=== PATIENT | male | born 1945 | race Caucasian/White ===

== ENCOUNTER 2021-11-11 09:58 | Emergency (ER) | payer MEDICARE, OTHER ==
[~2021-11-11] VITALS: Ht 182.9 cm; Wt 95.5 kg
[2021-11-11] MEDS ORDERED: ACETAMINOPHEN 500 MG TABLET PO ONE (10:30)
[2021-11-11 10:48] LABS: COVID AG,FIA SOURCE NASOPHARYNGEAL
[2021-11-11 10:50] LABS: BASOPHILS % (AUTO) 0.3 % (0.0-2.0); EOSINOPHILS % (AUTO) 0.2 % (1.0-6.0); HEMATOCRIT 41.5 % (41-53); HEMOGLOBIN 13.9 g/dL (13.5-17.5); LYMPHOCYTES # (AUTO) 1.5 K/uL (1.0-4.8); LYMPHOCYTES % (AUTO) 13.7 % (22.0-44.0); MEAN CORPUSCULAR HGB CONC 33.5 G/dL (31.0-37.0); MEAN CORPUSCULAR VOLUME 87 fL (80-100); MONOCYTES # (AUTO) 1.1 K/uL (0.1-1.0); MONOCYTES % (AUTO) 9.6 % (2.0-9.0); NEUTROPHILS # (AUTO) 8.5 K/uL (1.8-7.7); NEUTROPHILS % (AUTO) 76.2 % (40.0-70.0); PLATELET COUNT (AUTO) 381 K/uL (150-450); RED BLOOD CELL COUNT(AUTO) 4.78 MIL/uL (4.50-5.90); RED CELL DISTRIBUTION WIDTH 14.5 % (11.5-14.5)
[2021-11-11 11:00] LABS: CALCIUM, TOTAL 8.7 mg/dL (8.8-10.5); CREATININE 1.65 mg/dL (0.60-1.30); POTASSIUM 3.8 mmol/L (3.5-5.1)
[2021-11-11 11:05] LABS: ALBUMIN 3.2 g/dL (3.4-5.0); BILIRUBIN,TOTAL 0.4 mg/dL (0.1-1.0); TOTAL PROTEIN, SERUM 7.3 g/dL (6.4-8.2)
[2021-11-11 11:19] VITALS: BP 114/50
== END 2021-11-11 11:59 | disposition home or self-care (01) ==
LOC: EMS 10:10
DX: R19.7 Diarrhea, unspecified (principal); F20.9 Schizophrenia, unspecified; Z20.822 Contact with and (suspected) exposure to COVID-19; Z88.0 Allergy status to penicillin
CPT/HCPCS: 80053; 85025; 99283

== ENCOUNTER 2022-04-28 14:38 | Emergency (ER) | payer MEDICARE, OTHER ==
[~2022-04-28] VITALS: Ht 180.3 cm; Wt 68.2 kg
[2022-04-28 14:45] VITALS: BP 122/73
== END 2022-04-28 16:13 | disposition left against medical advice (07) ==
LOC: EMS 14:40
DX: R53.1 Weakness (principal); Z53.21 Procedure and treatment not carried out due to patient leaving prior to being seen by health care provider
CPT/HCPCS: 99283

== ENCOUNTER 2024-05-13 11:31 | Inpatient (IN) | payer MEDICARE, OTHER ==
[~2024-05-13] VITALS: Ht 185.4 cm; Wt 100.1 kg
[~2024-05-13 11:31] MED LIST: BENA-18 PO; QUET100T PO; TAMS0.4C94 PO
[2024-05-13] MEDS: PredniSONE 20 MG TABLET PO ONE (12:02)
[2024-05-13 12:22] VITALS: PULSE 71; RESP 20; O2SAT 95
[2024-05-13] MEDS: IPRATROPIUM BROMIDE 0.5 MG/2.5 ML NEB SOLUTION NEB ONE (12:22)
[2024-05-13] MEDS: ALBUTEROL SULFATE 2.5 MG/0.5 ML NEB SOLUTION NEB ONE (12:22)
[2024-05-13 12:30] VITALS: PULSE 65; RESP 20; O2SAT 98
[2024-05-13 12:41] LABS: CALCIUM, TOTAL 8.7 mg/dL (8.8-10.5); CREATININE 1.41 mg/dL (0.60-1.30); POTASSIUM 4.5 mmol/L (3.5-5.1)
[2024-05-13 12:46] LABS: ALBUMIN 3.8 g/dL (3.4-5.0); BILIRUBIN,TOTAL 0.3 mg/dL (0.1-1.0); TOTAL PROTEIN, SERUM 7.8 g/dL (6.4-8.2)
[2024-05-13 12:48] LABS: BASOPHILS % (AUTO) 0.4 % (0.0-2.0); EOSINOPHILS % (AUTO) 3.3 % (1.0-6.0); HEMATOCRIT 43.8 % (41-53); HEMOGLOBIN 14.3 g/dL (13.5-17.5); LYMPHOCYTES # (AUTO) 1.8 K/uL (1.0-4.8); LYMPHOCYTES % (AUTO) 28.8 % (22.0-44.0); MEAN CORPUSCULAR HEMOGLOBIN 29.4 pg (26.0-34.0); MEAN CORPUSCULAR HGB CONC 32.7 G/dL (31.0-37.0); MEAN CORPUSCULAR VOLUME 90 fL (80-100); MONOCYTES # (AUTO) 0.5 K/uL (0.1-1.0); MONOCYTES % (AUTO) 8.3 % (2.0-9.0); NEUTROPHILS # (AUTO) 3.7 K/uL (1.8-7.7); NEUTROPHILS % (AUTO) 59.2 % (40.0-70.0); PLATELET COUNT (AUTO) 300 K/uL (150-450); RED BLOOD CELL COUNT(AUTO) 4.88 MIL/uL (4.50-5.90); RED CELL DISTRIBUTION WIDTH 15.1 % (11.5-14.5); TROPONIN I-HIGH SENSITIVITY 7 ng/L (<76); WHITE BLOOD COUNT (AUTO) 6.3 K/uL (4.5-11.0)
[2024-05-13 12:53] LABS: PROTHROMBIN TIME 10.2 SEC (9.4-11.6)
[2024-05-13] MEDS: MethylPREDNISolone SOD SUCC 40 MG/ML VIAL IVP ONE (13:42)
[2024-05-13] MEDS: LEVOFLOXACIN 750 MG/D5% WATER 150 ML IV ONE (13:59)
[2024-05-13] MEDS ORDERED: HYDROCODONE/ACETAMINOPHEN 5-325 MG TABLET PO PRN (14:45)
[2024-05-13] MEDS ORDERED: ONDANSETRON HCL 4 MG/2 ML VIAL IVP PRN (14:45)
[2024-05-13] MEDS ORDERED: MAGNESIUM HYDROXIDE SUSPENSION 30 ML UDCUP PO PRN (14:45)
[2024-05-13] MEDS ORDERED: BISACODYL 10 MG RECTAL RECTAL SUPPOSITORY PR PRN (14:45)
[2024-05-13] MEDS ORDERED: ALBUTEROL SULFATE 2.5 MG/0.5 ML NEB SOLUTION NEB PRN (14:45)
[2024-05-13] MEDS ORDERED: IPRATROPIUM BROMIDE 0.5 MG/2.5 ML NEB SOLUTION NEB PRN (14:45)
[2024-05-13 15:38] LABS: APPEARANCE,URINE CLEAR (CLEAR); BILIRUBIN,URINE NEGATIVE (NEGATIVE); COLOR,URINE LIGHT YELLOW (YELLOW); GLUCOSE, URINE (UA) NEGATIVE (NEGATIVE); KETONES,URINE NEGATIVE (NEGATIVE); LEUKOCYTE ESTERASE ,URINE NEGATIVE (NEGATIVE); NITRATE,URINE NEGATIVE (NEGATIVE); OCCULT BLOOD,URINE NEGATIVE (NEGATIVE); PH,URINE 5.5 (5.0-8.0); PROTEIN,URINE NEGATIVE (NEGATIVE); SPECIFIC GRAVITIY, URINE 1.015 (1.003-1.030); UROBILINOGEN,URINE <=1.0 mg/dL (<=1.0)
[2024-05-13 16:01] VITALS: BP 150/85; PULSE 68; RESP 18; TEMP 98.1; O2SAT 97
[2024-05-13] MEDS: BENZONATATE 100 MG CAPSULE PO SCH (16:50)
[2024-05-13] MEDS: HEPARIN SODIUM,PORCINE 5,000 UNITS/ML VIAL SQ SCH (16:51)
[2024-05-13] MEDS: MethylPREDNISolone SOD SUCC 125 MG/2 ML VIAL IVP SCH (17:51)
[2024-05-13 20:46] VITALS: BP 170/83; PULSE 83; RESP 19; TEMP 98.7; O2SAT 95
[2024-05-13] MEDS: GuaiFENesin SR 600 MG ER TABLET PO SCH (21:00)
[2024-05-13] MEDS: DOCUSATE SODIUM 100 MG CAPSULE PO SCH (21:00)
[2024-05-13] MEDS: ZOLPIDEM TARTRATE 5 MG TABLET PO PRN (22:03)
[2024-05-14] VITALS (15 sets, daily range): BP systolic 140–175; BP diastolic 64–94; PULSE 88–114; RESP 18–22; TEMP 98–98.5; O2SAT 94–100
[2024-05-14] MEDS: HydrALAZINE HCL 20 MG/ML VIAL IVP PRN (00:57)
[2024-05-14 06:13] LABS: HEMATOCRIT 43.3 % (41-53); HEMOGLOBIN 14.4 g/dL (13.5-17.5); MEAN CORPUSCULAR HEMOGLOBIN 29.6 pg (26.0-34.0); MEAN CORPUSCULAR HGB CONC 33.2 G/dL (31.0-37.0); MEAN CORPUSCULAR VOLUME 89 fL (80-100); PLATELET COUNT (AUTO) 281 K/uL (150-450); RED BLOOD CELL COUNT(AUTO) 4.86 MIL/uL (4.50-5.90); RED CELL DISTRIBUTION WIDTH 15.3 % (11.5-14.5); WHITE BLOOD COUNT (AUTO) 15.3 K/uL (4.5-11.0)
[2024-05-14 06:22] LABS: CALCIUM, TOTAL 8.9 mg/dL (8.8-10.5); CREATININE 1.59 mg/dL (0.60-1.30); POTASSIUM 4.6 mmol/L (3.5-5.1)
[2024-05-14 07:42] LABS: RBC MORPHOLOGY COMMENT NORMAL RBC MORPH
[2024-05-14 07:46] LABS: BAND NEUTROPHILS % (MANUAL) 2 % (0-5); LYMPHOCYTES % (MANUAL) 9 % (22-44); MONOCYTES % (MANUAL) 4 % (2-9); SEGMENTED NEUTROPHILS % 85 % (40-70); TOTAL CELLS COUNTED 100
[2024-05-14] MEDS: PANTOPRAZOLE SODIUM 40 MG DR TABLET PO SCH (08:20)
[2024-05-14] MEDS: IPRATROPIUM BROMIDE 0.5 MG/2.5 ML NEB SOLUTION NEB SCH (08:43)
[2024-05-14] MEDS: ALBUTEROL SULFATE 2.5 MG/0.5 ML NEB SOLUTION NEB SCH (08:43)
[2024-05-14] MEDS: ACETAMINOPHEN 325 MG TABLET PO PRN (09:10)
[2024-05-14] MEDS: MORPHINE SULFATE 2 MG/ML SYRINGE IVP PRN (11:04)
[2024-05-14] MEDS: BENAZEPRIL HCL 20 MG TABLET PO SCH (15:15)
[2024-05-14] MEDS: QUEtiapine FUMARATE 100 MG TABLET PO SCH (15:15)
[2024-05-14] MEDS: TAMSULOSIN HCL 0.4 MG CAPSULE PO SCH (15:27)
[2024-05-14] MEDS ORDERED: TAMS0.4C94 PO (15:31)
[2024-05-15 02:40] VITALS: PULSE 92; RESP 20; O2SAT 92
[2024-05-15 02:55] VITALS: PULSE 81; RESP 20; O2SAT 98
[2024-05-15 04:15] VITALS: BP 150/83; PULSE 89; RESP 19; TEMP 98.2; O2SAT 97
[2024-05-15 06:30] LABS: BASOPHILS % (AUTO) 0.3 % (0.0-2.0); EOSINOPHILS % (AUTO) 0 % (1.0-6.0); HEMATOCRIT 43.3 % (41-53); HEMOGLOBIN 14.3 g/dL (13.5-17.5); LYMPHOCYTES # (AUTO) 1.4 K/uL (1.0-4.8); MEAN CORPUSCULAR HEMOGLOBIN 29.5 pg (26.0-34.0); MEAN CORPUSCULAR VOLUME 89 fL (80-100); MONOCYTES % (AUTO) 4.5 % (2.0-9.0); NEUTROPHILS # (AUTO) 20.2 K/uL (1.8-7.7); PLATELET COUNT (AUTO) 298 K/uL (150-450); RED BLOOD CELL COUNT(AUTO) 4.85 MIL/uL (4.50-5.90); RED CELL DISTRIBUTION WIDTH 15.7 % (11.5-14.5); WHITE BLOOD COUNT (AUTO) 22.6 K/uL (4.5-11.0)
[2024-05-15 06:41] LABS: CALCIUM, TOTAL 8.7 mg/dL (8.8-10.5); CREATININE 1.63 mg/dL (0.60-1.30); POTASSIUM 4.6 mmol/L (3.5-5.1)
[2024-05-15 07:19] LABS: NEUTROPHILS % (AUTO) 89.2 % (40.0-70.0)
[2024-05-15 08:18] VITALS: PULSE 82; RESP 20; O2SAT 98
[2024-05-15 08:19] VITALS: PULSE 85; RESP 18; O2SAT 98
[2024-05-15] MEDS ORDERED: BENZ-227 PO (12:47)
[2024-05-15] MEDS ORDERED: TAMS0.4C94 PO (12:47)
[2024-05-15] MEDS ORDERED: IPRA4AER IH (12:47)
[2024-05-15] MEDS ORDERED: METH4TAB3 PO (12:47)
[2024-05-15] MEDS ORDERED: QUET100T PO (12:47)
[2024-05-15] MEDS ORDERED: BENA-18 PO (12:47)
[2024-05-15] MEDS ORDERED: ALBU18HF12 IH (12:47)
[2024-05-15] MEDS ORDERED: GUAIF600 PO (12:47)
[2024-05-15] MEDS ORDERED: QUET100T34 PO (12:47)
[2024-05-15] MEDS: PredniSONE 20 MG TABLET PO ONE (13:55)
[2024-05-15] MEDS ORDERED: QUEtiapine FUMARATE 100 MG TABLET PO SCH (21:00)
[2024-05-15] MEDS ORDERED: TAMSULOSIN HCL 0.4 MG CAPSULE PO SCH (21:00)
== END 2024-05-15 15:05 | disposition home or self-care (01) | DRG 140 ==
LOC: EMS 11:34 → EDH 13:58 → 5S 16:10
PROVIDERS: ADMIT Internal Medicine; ATTEND Internal Medicine
DX: J44.1 Chronic obstructive pulmonary disease with (acute) exacerbation (principal); N17.9 Acute kidney failure, unspecified; I10 Essential (primary) hypertension; N40.0 Benign prostatic hyperplasia without lower urinary tract symptoms; F20.9 Schizophrenia, unspecified; F17.200 Nicotine dependence, unspecified, uncomplicated; Z88.0 Allergy status to penicillin; R65.10 Systemic inflammatory response syndrome (SIRS) of non-infectious origin without acute organ dysfunction
CPT/HCPCS: 71045; 80048; 80053; 81003; 83880; 84484; 85025; 85610; 85730; 93005; 94640; 99285; J0360; J1644; J1956; J2270; J2919; 36415-L1; 36415-TC; J7613